=== PATIENT | female | born 1945 | race Caucasian/White ===

== ENCOUNTER 2020-09-02 11:11 | Inpatient (IN) | payer MEDICARE ==
[~2020-09-02] VITALS: Ht 160 cm; Wt 47.2 kg
[2020-09-02 11:38] LABS: BASOPHILS % 0.3 % (0.0-1.0); EOSINOPHILS # (AUTO) 0.1 (0.0-0.4); EOSINOPHILS % 1.3 % (0.0-6.0); HEMATOCRIT 34.7 % (34.2-44.1); HEMOGLOBIN 11.7 g/dL (12.0-16.0); LYMPHOCYTES # (AUTO) 2.4 (1.0-3.2); LYMPHOCYTES % 39.1 % (18.0-39.1); MEAN CORPUSCULAR HGB CONC 33.7 g/dL (31-35); MONOCYTES # (AUTO) 0.4 (0.2-0.8); MONOCYTES % 7.3 % (4.4-11.3); NEUTROPHILS # (AUTO) 3.1 (2.1-6.9); NEUTROPHILS % 51.8 % (38.7-80.0); PLATELET COUNT 247 x10e3/uL (140-360); RED CELL DISTRIBUTION WIDTH 13.4 % (11.7-14.4)
[2020-09-02 11:52] LABS: ALANINE AMINOTRANSFERASE 7 IU/L (0-55); ALBUMIN 3.5 g/dL (3.5-5.0); ALKALINE PHOSPHATASE 71 IU/L (40-150); ANION GAP 13.7 mmol/L (8-16); BLOOD UREA NITROGEN 12 mg/dL (7-26); BUN/CREATININE RATIO 13 (6-25); CALCIUM 9.2 mg/dL (8.4-10.2); CARBON DIOXIDE 33 mmol/L (22-29); CHLORIDE 99 mmol/L (98-107); CREATINE KINASE 21 IU/L (29-168); CREATININE, SERUM 0.89 mg/dL (0.57-1.11); EST GLOMERULAR FILTRATION RATE > 60 ML/MIN (60-); GLUCOSE 122 mg/dL (74-118); SODIUM 143 mmol/L (136-145)
[2020-09-02 11:53] LABS: POTASSIUM 2.7 mmol/L (3.5-5.1)
[2020-09-02] MEDS ORDERED: POTASSIUM CHLORIDE 10MEQ/100ML 100 ML IV ONE (13:00)
[2020-09-02] MEDS ORDERED: HYDRALAZINE HCL 20 MG/ML VIAL IV STA (13:17)
[2020-09-02] MEDS ORDERED: D5.45%NS/KCL 20MEQ 1,000 ML IV ONE ×2 (13:30→18:45)
[2020-09-02 15:18] VITALS: BP 165/85
[2020-09-02] MEDS ORDERED: DOCUSATE SODIUM 100 MG CAP PO PRN (15:30)
[2020-09-02] MEDS ORDERED: ACETAMINOPHEN 325 MG TAB PO PRN (15:30)
[2020-09-02] MEDS: FAMOTIDINE 20 MG TAB PO SCH (16:30)
[2020-09-02] MEDS ORDERED: PEPCID AC10 MG PO (16:41)
[2020-09-02] MEDS ORDERED: ASPIRIN81 MG PO (16:41)
[2020-09-02] MEDS ORDERED: BENICAR HCT 201 EACH PO (16:42)
[2020-09-02 19:30] LABS: MAGNESIUM 1.2 MG/DL (1.3-2.1)
[2020-09-02 19:35] LABS: POTASSIUM 2.8 mmol/L (3.5-5.1)
[2020-09-02 20:00] VITALS: BP 165/91
[2020-09-02] MEDS ORDERED: POTASSIUM CHLORIDE 20MEQ/100ML 100 ML IV STA (20:39)
[2020-09-02] MEDS ORDERED: MAGNESIUM SULFATE 2GM/50ML 50 ML IV ONE (20:45)
[2020-09-02] MEDS ORDERED: ZOLPIDEM TARTRATE 5 MG TAB PO PRN (21:00)
[2020-09-02] MEDS ORDERED: SODIUM CHLORIDE 0.9% 1000ML 1,000 ML IV ONE (23:30)
[2020-09-02] MEDS ORDERED: METOPROLOL TARTRATE INJ 1 MG/ML VIAL IV ONE (23:30)
[2020-09-02] MEDS ORDERED: POTASSIUM CHLORIDE 20MEQ/100ML 100 ML IV ONE (23:30)
[2020-09-02] MEDS ORDERED: SODIUM CHLORIDE 0.9% 500ML 500 ML ONE (23:50)
[2020-09-03] VITALS (22 sets, daily range): BP systolic 107–181; BP diastolic 56–97
[2020-09-03] MEDS ORDERED: POTASSIUM CHLORIDE 20MEQ/100ML 200 ML IV ONE ×2 (00:15→01:20)
[2020-09-03] MEDS: METOPROLOL TARTRATE INJ 1 MG/ML VIAL IV SCH ×4 (01:49→22:00)
[2020-09-03 03:11] LABS: ANION GAP 13.5 mmol/L (8-16); BLOOD UREA NITROGEN 9 mg/dL (7-26); BUN/CREATININE RATIO 12 (6-25); CALCIUM 8.8 mg/dL (8.4-10.2); CARBON DIOXIDE 30 mmol/L (22-29); CHLORIDE 100 mmol/L (98-107); CREATININE, SERUM 0.76 mg/dL (0.57-1.11); EST GLOMERULAR FILTRATION RATE > 60 ML/MIN (60-); GLUCOSE 132 mg/dL (74-118); POTASSIUM 3.5 mmol/L (3.5-5.1); SODIUM 140 mmol/L (136-145)
[2020-09-03 04:49] LABS: BASOPHILS % 0.2 % (0.0-1.0); HEMOGLOBIN 12.7 g/dL (12.0-16.0); LYMPHOCYTES # (AUTO) 1.6 (1.0-3.2); LYMPHOCYTES % 15.7 % (18.0-39.1); MEAN CORPUSCULAR HEMOGLOBIN 30.8 pg (28-32); MEAN CORPUSCULAR HGB CONC 33.4 g/dL (31-35); MONOCYTES # (AUTO) 0.4 (0.2-0.8); NEUTROPHILS % 79.8 % (38.7-80.0); PLATELET COUNT 311 x10e3/uL (140-360); RED BLOOD COUNT 4.13 x10e6/uL (3.6-5.1); RED CELL DISTRIBUTION WIDTH 13.4 % (11.7-14.4)
[2020-09-03 05:11] LABS: ANION GAP 14.5 mmol/L (8-16); BLOOD UREA NITROGEN 9 mg/dL (7-26); BUN/CREATININE RATIO 12 (6-25); CARBON DIOXIDE 28 mmol/L (22-29); CHLORIDE 101 mmol/L (98-107); CREATININE, SERUM 0.75 mg/dL (0.57-1.11); EST GLOMERULAR FILTRATION RATE > 60 ML/MIN (60-); GLUCOSE 113 mg/dL (74-118); POTASSIUM 4.5 mmol/L (3.5-5.1); SODIUM 139 mmol/L (136-145)
[2020-09-03] MEDS ORDERED: METOPROLOL TARTRATE INJ 1 MG/ML VIAL IV SCH (06:00)
[2020-09-03] MEDS: FAMOTIDINE 20 MG TAB PO SCH ×2 (07:17→13:18)
[2020-09-03] MEDS: MULTIVITAMINS/MINERALS TAB PO SCH ×2 (07:17→13:18)
[2020-09-03] MEDS ORDERED: CLONIDINE HCL 0.1 MG/24 HR 1 EA PATCH TOP SCH ×2 (07:45→10:15)
[2020-09-03 08:51] LABS: CHOL/HDL RATIO 2.3 (3.0-3.6)
[2020-09-03] MEDS ORDERED: AMIODARONE HCL 200 MG TAB PO SCH (09:00)
[2020-09-03] MEDS ORDERED: PROPOFOL IV EMULSION 10 MG/ML 20 ML VIAL ONE (12:55)
[2020-09-03] MEDS ORDERED: LABETALOL HCL 5 MG/ML 20ML VIAL ONE (12:55)
[2020-09-03] MEDS ORDERED: LIDOCAINE HCL 2% LOCAL INJ 5 ML SDV VIAL INJ ONE (12:55)
[2020-09-03] MEDS ORDERED: NALOXONE HCL INJ 0.4 MG/ML AMP ONE (12:55)
[2020-09-03] MEDS: METOPROLOL TARTRATE 25 MG TAB PO SCH ×2 (13:17→22:00)
[2020-09-03 22:47] LABS: PHOSPHORUS 4.3 MG/DL (2.3-4.7); POTASSIUM 3.9 mmol/L (3.5-5.1)
[2020-09-04] VITALS (8 sets, daily range): BP systolic 125–156; BP diastolic 58–83
[2020-09-04] MEDS: METOPROLOL TARTRATE 25 MG TAB PO SCH ×3 (05:58→23:40)
[2020-09-04] MEDS: METOPROLOL TARTRATE INJ 1 MG/ML VIAL IV SCH ×3 (06:00→16:33)
[2020-09-04] MEDS: FAMOTIDINE 20 MG TAB PO SCH ×2 (07:30→16:33)
[2020-09-05] VITALS (7 sets, daily range): BP systolic 142–171; BP diastolic 75–95
[2020-09-05] MEDS: METOPROLOL TARTRATE INJ 1 MG/ML VIAL IV SCH ×2 (06:00→13:57)
[2020-09-05] MEDS: METOPROLOL TARTRATE 25 MG TAB PO SCH ×2 (06:21→13:57)
[2020-09-05] MEDS: FAMOTIDINE 20 MG TAB PO SCH ×2 (08:43→15:16)
[2020-09-05] MEDS: MULTIVITAMINS/MINERALS TAB PO SCH (08:43)
[2020-09-05] MEDS ORDERED: LOSARTAN POTASSIUM 100 MG TAB PO SCH (15:00)
[2020-09-05] MEDS: LOSARTAN POTASSIUM 25 MG TAB PO SCH (15:16)
[2020-09-05] MEDS ORDERED: METOPROLOL TARTRATE 25 MG TAB PO SCH (22:00)
[2020-09-05] MEDS: METOPROLOL TARTRATE 50 MG TAB PO SCH (22:16)
[2020-09-06] VITALS: BP 148/69
[2020-09-06 04:00] VITALS: BP 136/60
[2020-09-06] MEDS: METOPROLOL TARTRATE 50 MG TAB PO SCH (06:22)
[2020-09-06] MEDS ORDERED: METOPROLOL TART50 MG PO (06:41)
[2020-09-06] MEDS ORDERED: FAMOTIDINE20 MG PO (06:41)
[2020-09-06] MEDS ORDERED: COZAAR25 MG PO (06:41)
[2020-09-06] MEDS ORDERED: COLACE100 MG PO (06:41)
[2020-09-06] MEDS ORDERED: ELIQUIS5 MG PEG (06:42)
[2020-09-06 08:20] VITALS: BP 136/70
[2020-09-06 08:37] VITALS: BP 136/70
[2020-09-06] MEDS ORDERED: LOSARTAN POTASSIUM 100 MG TAB PO SCH (09:00)
[2020-09-06] MEDS: LOSARTAN POTASSIUM 25 MG TAB PO SCH (09:04)
[2020-09-06] MEDS: FAMOTIDINE 20 MG TAB PO SCH (09:04)
[2020-09-06] MEDS: MULTIVITAMINS/MINERALS TAB PO SCH (09:04)
[2020-09-06 11:57] VITALS: BP 145/69
== END 2020-09-06 13:00 | disposition home or self-care (01) | DRG 56 ==
LOC: ER 11:22 → ERHOLD 13:30 → MED/SURG 15:43 → ICU 09-03 00:47 → OBSVTOIN 09-03 02:09 → MED/SURG 09-03 22:53
PROVIDERS: ADMIT Internal Medicine; ATTEND Internal Medicine
PROC: 0D748ZZ Dilation of Esophagogastric Junction, Via Natural or Artificial Opening Endoscopic (ICD-10-PCS; 2020-09-03)
PROC: 0DH63UZ Insertion of Feeding Device into Stomach, Percutaneous Approach (ICD-10-PCS; principal; 2020-09-03 12:30)
DX: I69.391 Dysphagia following cerebral infarction (principal); E43 Unspecified severe protein-calorie malnutrition; I47.1 Supraventricular tachycardia; Z68.1 Body mass index [BMI] 19.9 or less, adult; R62.7 Adult failure to thrive; I48.0 Paroxysmal atrial fibrillation; R13.10 Dysphagia, unspecified; I10 Essential (primary) hypertension; E87.6 Hypokalemia; Z86.73 Personal history of transient ischemic attack (TIA), and cerebral infarction without residual deficits; K29.70 Gastritis, unspecified, without bleeding; K22.2 Esophageal obstruction; Z20.828 Contact with and (suspected) exposure to other viral communicable diseases; I69.322 Dysarthria following cerebral infarction
CPT/HCPCS: 36415; 43246; 71045; 80048; 80053; 80061; 82550; 82553; 82948; 83735; 83880; 84100; 84132; 84443; 84484; 85025; 93005; 93306; 97139; 99284; G0378; J0360; J2001; J2310; J3475; J3480; J7040; U0002